=== PATIENT | female | born 1975 | race American Indian/Alaskan Native ===

== ENCOUNTER 2017-12-17 12:18 | Emergency (ER) | payer OTHER ==
[2017-12-17 13:01] VITALS: BP 137/89
[2017-12-17 13:40] LABS: Bacteria,Urine 1+ /HPF (Negative); Bilirubin,Urine NEG (Negative); Blood,Urine MOD (Negative); Color,Urine Yellow (Yellow); Mucus,Urine 2+ /HPF; Nitrite,Urine NEG (Negative)
[2017-12-17 13:41] LABS: RBC,Urine > 182.0 /HPF (0.0-6.0)
[2017-12-17 13:43] LABS: HCG Qualitative,Urine Negative (Negative)
[2017-12-17] MEDS ORDERED: MOTRIN PO ONE (15:12)
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
== END 2017-12-17 18:51 | disposition home or self-care (01) ==
LOC: ED 12:18
DX: S16.1XXA Strain of muscle, fascia and tendon at neck level, initial encounter (principal); M54.41 Lumbago with sciatica, right side; F17.200 Nicotine dependence, unspecified, uncomplicated; V49.49XA Driver injured in collision with other motor vehicles in traffic accident, initial encounter; Y93.89 Activity, other specified; Y92.89 Other specified places as the place of occurrence of the external cause; Y99.8 Other external cause status
CPT/HCPCS: 72040; 72100; 81001; 81025; 99284

== ENCOUNTER 2020-12-14 16:30 | Emergency (ER) | payer SELFPAY ==
[2020-12-14 16:42] VITALS: BP 191/118
--- NOTE | 2020-12-14 17:06 | Emergency Department Report ---
- General Chief Complaint: Upper Respiratory Infection Stated Complaint: COUGHING UP SPUTUM Source: patient Mode of arrival: Ambulatory Limitations: No Limitations - History of Present Illness Initial Comments: Patient is a 45-year-old -[place] Island[place] female with a history of hypertension who presents to the ED with nasal and sinus congestion, frontal and maxillary sinus pressure, bilateral ear pressure and persistent dry cough for the last 2 months, worse in the last 2 days. Patient admits to smoking tobacco heavily. Patient states that she has been taking [id number] medications with no rel ief. Patient denies dizziness, syncope, chest pain, shortness of breath, sore throat, change in vision, abdominal pain, nausea, vomiting, diarrhea, dysuria, urinary frequency and urgency, neck pain or back pain. MD Complaint: cough, rhinorrhea, nasal congestion, sinus pain -: Gradual, month(s) (2) Severity: severe Severity scale (0 -10): 7 Quality: sharp Consistency: constant Improves With: nothing Worsens With: nothing Associated Symptoms: denies other symptoms, headache, rhinorrhea, nasal congestion, cough. denies: fever, chills, myalgias, diaphoresis, sore throat, stiff neck, chest pain, shortness of breath, abdominal pain, nausea, vomiting, diarrhea, dysuria, rash, confusion, weight loss, epistaxis, hoarseness Treatments Prior to Arrival: none - Related Data Previous Rx's Medication Instructions Recorded Last Taken Type Cyclobenzaprine [Flexeril] 10 mg PO TID PRN 5 Days #15 tablet 12/17/17 Unknown Rx Naproxen 500 mg PO Q12H PRN #12 tablet 12/17/17 Unknown Rx Benzonatate [Tessalon Perles] 100 mg PO Q8HR #30 capsule 12/14/20 Unknown Rx Cetirizine HCl [Zyrtec 10mg tab] 10 mg PO DAILY #30 tablet 12/14/20 Unknown Rx Doxycycline Hyclate 100 mg PO Q12H #20 tablet. 12/14/20 Unknown Rx Ibuprofen [Motrin] 600 mg PO Q8H PRN #30 tablet 12/14/20 Unknown Rx Lisinopril/Hydrochlorothiazide 1 each PO QDAY 30 Days #30 tablet 12/14/20 Unknown Rx [Zestoretic 10-12.5 mg Tablet] methylPREDNISolone [Medrol 4MG 4 mg PO DAILY #21 tab.ds.pk 12/14/20 Unknown Rx DOSEPAK (21 tabs)] Allergies Allergy/AdvReac Type Severity Reaction Status Date / Time codeine Allergy Itching Verified 12/14/20 16:35 erythromycin base Allergy Itching Verified 12/14/20 16:35 Penicillins Allergy Itching Verified 12/14/20 16:35 tramadol [From Ultram] Allergy Itching Verified 12/14/20 16:35 ED Review of Systems ROS: Stated complaint: COUGHING UP SPUTUM Other details as noted in HPI Constitutional: denies: chills, fever Eyes: denies: eye pain, eye discharge, vision change ENT: congestion, other (Frontal and maxillary sinus pressure). denies: ear pain, throat pain Respiratory: cough. denies: shortness of breath, wheezing Cardiovascular: denies: chest pain, palpitations Endocrine: no symptoms reported Gastrointestinal: denies: abdominal pain, nausea, vomiting, diarrhea Genitourinary: denies: urgency, dysuria, discharge Musculoskeletal: denies: back pain, joint swelling, arthralgia Skin: denies: rash, lesions Neurological: headache (Frontal). denies: weakness, paresthesias Psychiatric: denies: anxiety, depression Hematological/Lymphatic: denies: easy bleeding, easy bruising ED Past Medical Hx - Past Medical History Hx Hypertension: Yes - Surgical History Additional Surgical History: C SECTION - Social History Smoking Status: Never Smoker Substance Use Type: None - Medications Home Medications: Home Medications Medication Instructions Recorded Confirmed Last Taken Type Cyclobenzaprine [Flexeril] 10 mg PO TID PRN 5 Days #15 tablet 12/17/17 Unknown Rx Naproxen 500 mg PO Q12H PRN #12 tablet 12/17/17 Unknown Rx Benzonatate [Tessalon Perles] 100 mg PO Q8HR #30 capsule 12/14/20 Unknown Rx Cetirizine HCl [Zyrtec 10mg tab] 10 mg PO DAILY #30 tablet 12/14/20 Unknown Rx Doxycycline Hyclate 100 mg PO Q12H #20 tablet. 12/14/20 Unknown Rx Ibuprofen [Motrin] 600 mg PO Q8H PRN #30 tablet 12/14/20 Unknown Rx Lisinopril/Hydrochlorothiazide 1 each PO QDAY 30 Days #30 tablet 12/14/20 Unknown Rx [Zestoretic 10-12.5 mg Tablet] methylPREDNISolone [Medrol 4MG 4 mg PO DAILY #21 tab.ds.pk 12/14/20 Unknown Rx DOSEPAK (21 tabs)] ED Physical Exam - General Limitations: No Limitations General appearance: alert, in no apparent distress - Head Head exam: Present: atraumatic, normocephalic, normal inspection - Eye Eye exam: Present: normal appearance, PERRL, EOMI Pupils: Present: normal accommodation - ENT ENT exam: Present: normal orophraynx, mucous membranes moist, TM's normal bilaterally, normal external ear exam, other (Grossly congested nasal passages; palpable frontal and maxillary sinus tenderness with bilateral inner ear effusion and bulging tympanic membranes) - Neck Neck exam: Present: normal inspection, full ROM, lymphadenopathy - Respiratory Respiratory exam: Present: normal lung sounds bilaterally. Absent: respiratory distress, wheezes, rales, rhonchi, chest wall tenderness, accessory muscle use, decreased breath sounds, prolonged expiratory - Cardiovascular Cardiovascular Exam: Present: regular rate, normal rhythm, normal heart sounds. Absent: systolic murmur, diastolic murmur, rubs, gallop - GI/Abdominal GI/Abdominal exam: Present: soft, normal bowel sounds. Absent: tenderness, rebound, hyperactive bowel sounds, hypoactive bowel sounds, organomegaly - Extremities Exam Extremities exam: Present: normal inspection, full ROM, normal capillary refill - Back Exam Back exam: Present: normal inspection, full ROM. Absent: tenderness, CVA tenderness (R), CVA tenderness (L), muscle spasm, paraspinal tenderness, vert ebral tenderness - Neurological Exam Neurological exam: Present: alert, oriented X3, CN II-XII intact, normal gait, reflexes normal - Psychiatric Psychiatric exam: Present: normal affect, normal mood - Skin Skin exam: Present: warm, dry, intact, normal color. Absent: rash ED Course Vital Signs 12/14/20 16:39 Temperature 98.5 F Pulse Rate 92 H Respiratory 18 Rate Blood Pressure 191/118 O2 Sat by Pulse 100 Oximetry ED Medical Decision Making - Medical Decision Making This is a 45-year-old -[place] female with a history of hypertension who presents to the ED with nasal and sinus congestion, frontal and maxillary sinus pressure, bilateral ear pressure and persistent dry cough for the last 2 months, worse in the last 2 days. Patient admits to smoking tobacco heavily. Patient states that she has been taking [id number] medications with no relief. In the ED, patient is alert and oriented x3 and is not in any distress. Based on the history and physical exam findings, the patient will discharge home on medications and advised to follow-up with her primary care physician in 7 to 10 days for reevaluation. Patient was advised return to the ED immediately if symptoms get worse. - Differential Diagnosis Sinusitis; URI; bronchitis; pneumonia; rhinitis Critical care attestation.: If time is entered above; I have spent that time in minutes in the direct care of this critically ill patient, excluding procedure time. ED Disposition Clinical Impression: Acute recurrent maxillary sinusitis, Acute upper respiratory infection Acute bronchitis Qualifiers: Bronchitis organism: other organism Qualified Code(s): J20.8 - Acute bronchitis due to other specified organisms Disposition: - TO HOME OR SELFCARE Is pt being admited?: No Does the pt Need Aspirin: No Condition: Stable Instructions: Sinusitis, Adult, [id number], Acute Bronchitis, Adult, [id number], Upper Respiratory Infection, Adult, Pvyz-ey-Suky, Acute Bronchitis (ED) Additional Instructions: Take medications with food, drink plenty of fluids and follow up with your Primary care Physician in 7-10 days for reevaluation. Return to the ED immediately if symptoms get worse. Consider quitting tobacco abuse. Prescriptions: Doxycycline Hyclate 100 mg PO Q12H #20 tablet. methylPREDNISolone [Medrol 4MG DOSEPAK (21 tabs)] 4 mg PO DAILY #21 tab.ds.pk Ibuprofen [Motrin] 600 mg PO Q8H PRN #30 tablet PRN Reason: Pain Benzonatate [Tessalon Perles] 100 mg PO Q8HR #30 capsule Lisinopril/Hydrochlorothiazide [Zestoretic 10-12.5 mg Tablet] 1 each PO QDAY 30 Days #30 tablet Cetirizine HCl [Zyrtec 10mg tab] 10 mg PO DAILY #30 tablet Referrals: [facility] [Provider Group] - 7-10 days Time of Disposition: 17:03 Print Language: BURUN[place]
== END 2020-12-14 17:47 | disposition home or self-care (01) ==
LOC: ED 16:30
DX: J01.01 Acute recurrent maxillary sinusitis (principal); J20.9 Acute bronchitis, unspecified; I10 Essential (primary) hypertension; Z79.899 Other long term (current) drug therapy; Z88.0 Allergy status to penicillin; Z88.1 Allergy status to other antibiotic agents; Z88.4 Allergy status to anesthetic agent; Z88.6 Allergy status to analgesic agent
CPT/HCPCS: 99282